=== PATIENT | female | born 1935 | race Caucasian/White ===

== ENCOUNTER 2019-01-11 04:56 | Emergency (ER) | payer MEDICARE, MEDICAID ==
[~2019-01-11] VITALS: Ht 167.6 cm; Wt 65.9 kg
[2019-01-11] MEDS ORDERED: normal saline 1000ml 1,000 ML IV ONE (05:03)
[2019-01-11] MEDS ORDERED: normal saline 1000ML IV soln IVB ONE ×2 (05:05→06:50)
[2019-01-11] MEDS ORDERED: CefTRIAXone 2gm/D5W 50ml 50 ML IV ONE (05:55)
[2019-01-11 06:05] LABS: CLARITY,URINE CLOUDY (Clear); COLOR,URINE YELLOW (Yellow); GLUCOSE, URINE NEGATIVE (Neg); KETONES,URINE NEGATIVE (Neg); LEUKOCYTE ESTERASE ,URINE MODERATE (Neg); NITRITES, URINE POSITIVE (Neg); OCCULT BLOOD,URINE LARGE (Neg); PROTEIN,URINE 30 mg/dl (Neg); UROBILINOGEN,URINE 0.2 E.U/dL (0.2-1.0)
[2019-01-11 06:10] LABS: UA COLLECTION TYPE STRAIGHT CATH
[2019-01-11 06:11] LABS: BACTERIA,URINE 1+ /HPF (Neg); SQUAMOUS EPITHELIAL CELL,UR FEW /LPF (FEW); WBC,URINE 30-50 /HPF (0-4)
[2019-01-11 06:12] LABS: WBC CLUMPS,URINE FEW /HPF (NEGATIVE)
[2019-01-11 06:16] LABS: URINE AMPHETAMINE SCREEN NEGATIVE (Neg); URINE BARBITUATE SCREEN NEGATIVE (Neg); URINE BENZODIAZEPINES SCREEN NEGATIVE (Neg); URINE CANNABINOID SCREEN NEGATIVE (Neg); URINE COCAINE SCREEN NEGATIVE (Neg); URINE METHADONE SCREEN NEGATIVE (Neg); URINE OPIATE SCREEN POSITIVE (Neg); URINE PHENCYCLIDINE SCREEN NEGATIVE (Neg)
[2019-01-11 06:21] LABS: BASOPHILS % (AUTO) 0.3 % (0-1); EOSINOPHILS # (AUTO) 0.2 X10'3 (0-0.9); HEMATOCRIT 37.3 % (35.0-45.0); HEMOGLOBIN 12.3 g/dl (12.0-16.0); LYMPHOCYTES # (AUTO) 0.9 X10'3 (1.1-4.8); LYMPHOCYTES % (AUTO) 13.2 % (21-51); MEAN CORPUSCULAR HEMOGLOBIN 30.9 PG (27.0-31.0); MEAN CORPUSCULAR HGB CONC 32.8 g/dL (33.0-36.5); MEAN CORPUSCULAR VOLUME 93.9 FL (78-98); MEAN PLATELET VOLUME 7.3 FL (7.4-10.4); MONOCYTES # (AUTO) 0.5 X10'3 (0-0.9); MONOCYTES % (AUTO) 6.8 % (2-12); NEUTROPHILS # (AUTO) 5.3 X10'3 (1.8-7.7); NEUTROPHILS % (AUTO) 76.7 % (42-75); PLATELET COUNT 200 X10'3 (140-440); RED BLOOD COUNT 3.98 X10'6 (4.20-5.60); RED CELL DISTRIBUTION WIDTH 15.4 % (11.5-14.5); WHITE BLOOD COUNT 6.9 X10'3 (4.5-11.0)
--- NOTE | 2019-01-11 06:28 | NUR ---
Assumed care of patient. Patient resting in bed, sister at bedside. Patient has warm blanket. Rocephin and NS infusing.
[2019-01-11 06:37] LABS: ALANINE AMINOTRANSFERASE 14 U/L (12-78); ALBUMIN 3.1 G/DL (3.4-5.0); ALBUMIN/GLOBULIN RATIO 0.9 (1.1-1.5); ALKALINE PHOSPHATASE 62 IU/L (46-116); ANION GAP 5 (8-16); ASPARTATE AMINO TRANSFERASE 12 U/L (10-37); BILIRUBIN,TOTAL 0.5 MG/DL (0.1-1.0); BLOOD UREA NITROGEN 19 MG/DL (7-18); BUN/CREATININE RATIO 32.2 (6.6-38.0); CALCIUM 9.2 MG/DL (8.5-10.1); CHLORIDE 106 MMOL/L (99-107); CREATININE 0.59 MG/DL (0.40-0.90); GLUCOSE 90 MG/DL (70-104); POTASSIUM 4.1 MMOL/L (3.5-5.1); PROTHROMBIN TIME 10.1 SECONDS (9.0-12.0); SODIUM 147 MMOL/L (135-145); TOTAL CARBON DIOXIDE 36.3 MMOL/L (24-32); TOTAL PROTEIN 6.5 G/DL (6.4-8.2); eGFR > 90 ML/MIN
[2019-01-11 06:38] LABS: PARTIAL THROMBOPLASTIN TIME 28 SECONDS (22-32)
[2019-01-11 06:46] LABS: ETHANOL < 0.010 GM/DL (0.0-0.010); MAGNESIUM 1.6 MG/DL (1.5-2.4)
[2019-01-11 06:47] LABS: ACETAMINOPHEN < 2.0 UG/ML (10-30)
[2019-01-11] MEDS ORDERED: CEPH250T PO (06:50)
[2019-01-11 08:19] VITALS: BP 128/50
[2019-01-14] MEDS ORDERED: ASCO10007 PO (12:09)
[2019-01-14] MEDS ORDERED: HYDR-4353 PO ×2 (12:09→14:11)
[2019-01-14] MEDS ORDERED: CARV-50 PO (12:10)
[2019-01-14] MEDS ORDERED: GABA-534 PO (12:10)
[2019-01-14] MEDS ORDERED: LOVA20TA2 PO (12:10)
[2019-01-14] MEDS ORDERED: BACI1CAP4 PO (12:10)
[2019-01-14] MEDS ORDERED: LOSA25TA96 PO (12:10)
[2019-01-14] MEDS ORDERED: ASPI-1265 PO (12:10)
[2019-01-14] MEDS ORDERED: MULT1CAP44 PO (12:10)
[2019-01-14] MEDS ORDERED: BUDE10.2 INH (12:10)
[2019-01-14] MEDS ORDERED: THEO200T22 PO (12:10)
[2019-01-14] MEDS ORDERED: TIOT18CA3 INH (12:10)
[2019-01-14] MEDS ORDERED: OMEG1CAP PO (12:10)
[2019-01-14] MEDS ORDERED: LEVO112T5 PO (12:10)
[2019-01-14] MEDS ORDERED: UBID1CAP54 PO (12:10)
== END 2019-01-11 08:24 | disposition home or self-care (01) ==
LOC: ER 04:57
DX: R41.82 Altered mental status, unspecified (principal); N39.0 Urinary tract infection, site not specified; E86.0 Dehydration; I10 Essential (primary) hypertension; Z88.1 Allergy status to other antibiotic agents; Z88.5 Allergy status to narcotic agent; Z88.8 Allergy status to other drugs, medicaments and biological substances; Z79.2 Long term (current) use of antibiotics
CPT/HCPCS: 36415; 80053; 80305; 80320; 80329; 81001; 83605; 83735; 84443; 84484; 85025; 85610; 85730; 87040; 87077; 87088; 87186; 93005; 96361; 96365; 99284; J0696; J7030; P9612

== ENCOUNTER 2019-01-14 04:54 | Inpatient (IN) | payer MEDICARE, MEDICAID | END 2019-01-21 15:30 | disposition home or self-care (01) | LOC: ER 04:54 → ED HOLD 11:45 → PCU 3S 18:22 | DX: A41.9 Sepsis, unspecified organism (principal); J18.1 Lobar pneumonia, unspecified organism; J96.21 Acute and chronic respiratory failure with hypoxia ==

== ENCOUNTER 2019-02-09 09:23 | Inpatient (IN) | payer MEDICARE, MEDICAID | END 2019-02-11 16:05 | LOC: ER 09:23 → ED HOLD 12:47 → ORTHO 4S 02-10 12:00 | DX: S72.001A Fracture of unspecified part of neck of right femur, initial encounter for closed fracture (principal); J44.9 Chronic obstructive pulmonary disease, unspecified ==

== ENCOUNTER 2019-02-12 10:39 | Inpatient (IN) | payer MEDICARE, MEDICAID | END 2019-02-17 14:45 | LOC: ER 10:39 → ED HOLD 13:15 → PCU 3S 14:45 | DX: A41.9 Sepsis, unspecified organism (principal); I63.9 Cerebral infarction, unspecified; J96.01 Acute respiratory failure with hypoxia; J69.0 Pneumonitis due to inhalation of food and vomit; J44.1 Chronic obstructive pulmonary disease with (acute) exacerbation; E03.9 Hypothyroidism, unspecified ==